=== PATIENT | female | born 1970 | race Caucasian/White ===

== ENCOUNTER 2018-04-20 06:25 | Emergency (ER) | payer OTHER ==
[~2018-04-20] VITALS: Ht 149.9 cm; Wt 68.0 kg
[~2018-04-20 06:25] MED LIST: DEPAKOTE ER250 MG PO; GEODON20 MG; HYDROXYCHLOROQUINE; KLONOPIN2 MG/TAB PO; LAMICTAL100 MG PO; LATUDA60 MG PO; LYRICA150 MG; MORPHINE IJ; RESTORIL30 MG PO; SEROQUEL200 MG PO; SYNTHROID100 MCG; ULTRAM ER200 MG; ULTRAM50 MG; ULTRAM50 MG PO; ZOCOR40 MG; ZOLOF
[2018-04-20] MEDS ORDERED: XANAX1 MG (06:38)
[2018-04-20] MEDS ORDERED: VITAMIN D5000 UNIT (06:39)
[2018-04-20] MEDS ORDERED: ZOCOR40 MG (06:39)
[2018-04-20] MEDS ORDERED: NEURONTIN800 MG (06:40)
== END 2018-04-20 10:41 | disposition home or self-care (01) ==
LOC: ER 06:25
DX: L02.31 Cutaneous abscess of buttock (principal); L02.416 Cutaneous abscess of left lower limb; L02.415 Cutaneous abscess of right lower limb; B95.7 Other staphylococcus as the cause of diseases classified elsewhere

== ENCOUNTER 2019-06-30 15:15 | Emergency (ER) | payer OTHER ==
[~2019-06-30] VITALS: Ht 149.9 cm; Wt 74.4 kg
[~2019-06-30 15:15] MED LIST changes: -CELEBREX200MG PO; -COZAAR25 MG; -HYDROCHLOROTH12.5 M1; -INDERAL LA80 MG; -PAMELOR75 M1; -PRADAXA150 MG; -PROTONIX40 M1; -ULTRACET PO
[2019-06-30] MEDS ORDERED: PRADAXA150 MG (15:29)
[2019-06-30] MEDS ORDERED: PROTONIX40 M1 (15:30)
[2019-06-30] MEDS ORDERED: HYDROCHLOROTH12.5 M1 (15:30)
[2019-06-30] MEDS ORDERED: PAMELOR75 M1 (15:30)
[2019-06-30] MEDS ORDERED: COZAAR25 MG (15:30)
[2019-06-30] MEDS ORDERED: INDERAL LA80 MG (15:30)
[2019-06-30] MEDS ORDERED: CELEBREX200MG PO (18:33)
[2019-06-30] MEDS ORDERED: ULTRACET PO (18:33)
== END 2019-06-30 18:57 ==
LOC: ER 15:15
DX: S93.692A Other sprain of left foot, initial encounter (principal); M79.7 Fibromyalgia; X50.1XXA Overexertion from prolonged static or awkward postures, initial encounter; Y93.89 Activity, other specified; Y92.89 Other specified places as the place of occurrence of the external cause; Y99.8 Other external cause status

== ENCOUNTER → 2019-06-30 | Outpatient (CLI) | payer OTHER ==
[~2019-06-30] MED LIST changes: +CELEBREX200MG PO; +COZAAR25 MG; +HYDROCHLOROTH12.5 M1; +INDERAL LA80 MG; +NEURONTIN800 MG; +PAMELOR75 M1; +PRADAXA150 MG; +PROTONIX40 M1; +ULTRACET PO; +VITAMIN D5000 UNIT; +XANAX1 MG
== END | disposition home or self-care (01) ==
LOC: RAD 12:58
DX: R10.84 Generalized abdominal pain (principal); E04.2 Nontoxic multinodular goiter

== ENCOUNTER 2020-09-02 07:02 | Day surgery (SDC) | payer OTHER ==
[~2020-09-02 07:02] MED LIST changes: +CELEBREX200MG PO; +COZAAR25 MG; +HYDROCHLOROTH12.5 M1; +INDERAL LA80 MG; +PAMELOR75 M1; +PRADAXA150 MG; +PROTONIX40 M1; +ULTRACET PO
== END 2020-09-02 13:15 | disposition home or self-care (01) ==
LOC: AMB-ENDOS 07:02
PROVIDERS: ATTEND Surgery
DX: K62.89 Other specified diseases of anus and rectum (principal); Z20.828 Contact with and (suspected) exposure to other viral communicable diseases

== ENCOUNTER 2021-11-18 12:31 | Emergency (ER) | payer OTHER ==
[~2021-11-18] VITALS: Ht 149.9 cm; Wt 72.1 kg
== END 2021-11-18 15:56 | disposition home or self-care (01) ==
LOC: ER 12:31
DX: U07.1 COVID-19 (principal); B34.9 Viral infection, unspecified; R05.9 Cough, unspecified; R53.81 Other malaise

== ENCOUNTER 2021-11-22 08:00 | Outpatient (CLI) | payer OTHER | END 2021-11-22 09:00 | disposition home or self-care (01) | LOC: ASH CLINIC 08:00 | PROVIDERS: ATTEND General Practice | DX: U07.1 COVID-19 (principal); Z23 Encounter for immunization ==

== ENCOUNTER 2022-01-04 05:05 | Emergency (ER) | payer OTHER ==
[~2022-01-04] VITALS: Ht 149.9 cm; Wt 72.1 kg
[2022-01-04] MEDS ORDERED: MEDROLPACK PO (10:53)
== END 2022-01-04 14:01 ==
LOC: ER 05:05
DX: M79.7 Fibromyalgia (principal); R00.2 Palpitations; G43.909 Migraine, unspecified, not intractable, without status migrainosus

== ENCOUNTER 2023-11-14 01:09 | Inpatient (IN) | payer OTHER ==
[~2023-11-14] VITALS: Ht 149.9 cm; Wt 72.6 kg
[~2023-11-14 01:09] MED LIST changes: +AMICAR500 MG; +BUSPIRONE HCL5 MG PO; +COZAAR25 MG PO; +CYMBALTA20 MG PO; +FLONASE16 GM NS; +LASIX20 MG; +MAXALT10 MG PO; +MEDROLPACK PO; +NEURONTIN300 MG PO; +PROTONIX; +SILENOR3 MG; +VENTOLIN HFA18 GM; +ZOCOR40 MG PO; +ZYRTEC10 M3 PO; +[UNRECOGNIZED DRUG - OTHER]
[2023-11-14 03:05] LABS: HEMATOCRIT 37.2 % (36.0-45.00); HEMOGLOBIN 12.3 g/dL (12.0-15.00); MEAN CELL VOLUME 86.9 fL (80.00-100.00); MEAN CORPUSCULAR HEMOGLOBIN 28.7 pg (27.00-32.0); PLATELET COUNT 307 K/uL (150-450); RED BLOOD COUNT 4.28 M/uL (4.00-6.00); RED CELL DISTRIBUTION WIDTH 13.8 % (11.5-14.5)
[2023-11-14 03:27] LABS: PH,URINE 5.5 (5.0-8.0); URINE APPEARANCE Clear; URINE BILIRRUBIN Negative (NEGATIVE); URINE BLOOD Negative; URINE COLOR Dark Yellow; URINE GLUCOSE Negative (NEGATIVE); URINE LEUKOCYTE Trace; URINE NITRATE Positive; URINE PROTEIN Negative (NEGATIVE)
[2023-11-14 03:30] LABS: URINE EPITHELIAL CELLS 14.8 uL (0.0-38.8); URINE RBC 4.3 uL (0.0-20.8)
[2023-11-14 03:39] LABS: INR < 0.93; PARTIAL THROMBOPLASTIN TIME 23.6 SECONDS (22.0-34.0); PROTHROMBIN TIME 9.8 SECONDS (9.0-11.5)
[2023-11-14 03:44] LABS: ALBUMIN 3.1 gm/dL (3.4-5.0); BILIRUBIN TOTAL 0.42 mg/dL (0.3-1.2); CALCIUM 9.3 mg/dL (8.5-10.1); CREATININE SERUM 0.86 mg/dL (0.55-1.02); GFR 69.02; GLOBULINA 3.5 G/DL (2.4-3.5); POTASSIUM 3.94 mEq/L (3.5-5.1); TOTAL PROTEIN 6.6 gm/dL (6.4-8.2)
[2023-11-16 05:26] LABS: HEMATOCRIT 33.8 % (36.0-45.00); HEMOGLOBIN 11.4 g/dL (12.0-15.00); MEAN CELL VOLUME 85.5 fL (80.00-100.00); MEAN CORPUSCULAR HEMOGLOBIN 28.8 pg (27.00-32.0); MEAN CORPUSCULAR HGB CONC 33.7 g/dl (32.0-36.0); PLATELET COUNT 265 K/uL (150-450); RED BLOOD COUNT 3.95 M/uL (4.00-6.00); RED CELL DISTRIBUTION WIDTH 13.5 % (11.5-14.5)
[2023-11-16 05:35] LABS: BILIRUBIN TOTAL 0.38 mg/dL (0.3-1.2); CALCIUM 8.6 mg/dL (8.5-10.1); CREATININE SERUM 0.69 mg/dL (0.55-1.02); GLOBULINA 3.1 G/DL (2.4-3.5); MAGNESIUM 1.8 mg/dL (1.8-2.4); PHOSPHOROUS 4.2 mg/dL (2.5-4.9); POTASSIUM 3.9 mEq/L (3.5-5.1); TOTAL PROTEIN 6.1 gm/dL (6.4-8.2)
[2023-11-16] MEDS ORDERED: TAMS0.4C PO (16:48)
[2023-11-16] MEDS ORDERED: INTEGRA PLUS C1 EACH PO (16:49)
[2023-11-16] MEDS ORDERED: PANTOPRAZOLE SO20 MG PO (16:50)
[2023-11-16] MEDS ORDERED: KETO10TA2 PO (16:50)
== END 2023-11-16 18:50 | disposition home or self-care (01) | DRG 690 ==
LOC: ER 01:10 → MEDI 11:50
PROVIDERS: General Practice; ADMIT Internal Medicine; ATTEND Internal Medicine
PROC: BW21ZZZ Computerized Tomography (CT Scan) of Abdomen and Pelvis (ICD-10-PCS; principal; 2023-11-14)
DX: N39.0 Urinary tract infection, site not specified (principal); D68.62 Lupus anticoagulant syndrome; N20.1 Calculus of ureter; R33.9 Retention of urine, unspecified; I10 Essential (primary) hypertension; E03.9 Hypothyroidism, unspecified; N20.0 Calculus of kidney

== ENCOUNTER 2023-11-20 09:39 | Emergency (ER) | payer OTHER ==
[~2023-11-20] VITALS: Ht 149.9 cm; Wt 74.4 kg
[~2023-11-20 09:39] MED LIST changes: +INTEGRA PLUS C1 EACH PO; +KETO10TA2 PO; +PANTOPRAZOLE SO20 MG PO; +TAMS0.4C PO
[2023-11-20 11:21] LABS: HEMATOCRIT 38.3 % (36.0-45.00); HEMOGLOBIN 12.9 g/dL (12.0-15.00); MEAN CELL VOLUME 85.7 fL (80.00-100.00); MEAN CORPUSCULAR HEMOGLOBIN 28.9 pg (27.00-32.0); MEAN CORPUSCULAR HGB CONC 33.8 g/dl (32.0-36.0); PLATELET COUNT 336 K/uL (150-450); RED BLOOD COUNT 4.46 M/uL (4.00-6.00)
[2023-11-20 11:30] LABS: URINE APPEARANCE Clear; URINE BILIRRUBIN Negative (NEGATIVE); URINE BLOOD Negative; URINE COLOR Yellow; URINE GLUCOSE Negative (NEGATIVE); URINE LEUKOCYTE Negative; URINE NITRATE Negative; URINE PROTEIN Negative (NEGATIVE); URINE UROBILINOGEN 0.2 E.U./dl
[2023-11-20 11:35] LABS: URINE BACTERIA 21.4 uL (0.0-1933); URINE EPITHELIAL CELLS 14.9 uL (0.0-38.8)
[2023-11-20 11:42] LABS: INR 1.01; PARTIAL THROMBOPLASTIN TIME 24.6 SECONDS (22.0-34.0); PROTHROMBIN TIME 10.6 SECONDS (9.0-11.5)
[2023-11-20 11:49] LABS: ALBUMIN 3.8 gm/dL (3.4-5.0); BILIRUBIN TOTAL 0.76 mg/dL (0.3-1.2); CALCIUM 9.8 mg/dL (8.5-10.1); CREATININE SERUM 0.7 mg/dL (0.55-1.02); GFR 87.53; GLOBULINA 4.2 G/DL (2.4-3.5); POTASSIUM 3.7 mEq/L (3.5-5.1)
== END 2023-11-20 17:18 | disposition home or self-care (01) ==
LOC: ER 09:40
PROVIDERS: General Practice
DX: R11.2 Nausea with vomiting, unspecified (principal); M32.8 Other forms of systemic lupus erythematosus; M79.7 Fibromyalgia; Z88.6 Allergy status to analgesic agent; E56.8 Deficiency of other vitamins; I10 Essential (primary) hypertension; E03.9 Hypothyroidism, unspecified; E78.00 Pure hypercholesterolemia, unspecified; N20.1 Calculus of ureter; N20.0 Calculus of kidney
CPT/HCPCS: 36415; 74240; 76770; 96365; 99284; J2405

== ENCOUNTER 2024-06-16 04:32 | Emergency (ER) | payer OTHER ==
[~2024-06-16] VITALS: Ht 162.6 cm; Wt 70.3 kg
[2024-06-16] MEDS ORDERED: PROMETHAZINE HCL 50 MG/ML AMPUL IM STA (04:57)
[2024-06-16] MEDS ORDERED: MEPERIDINE HCL/PF 50 MG/ML VIAL IM STA (04:57)
[2024-06-16] MEDS ORDERED: SODIUM CHLORIDE 0.45 % 1,000 ML IV ONE (05:00)
[2024-06-16] MEDS ORDERED: PROMETHAZINE HCL 50 MG/ML AMPUL IM ONE (05:01)
[2024-06-16 06:21] LABS: HEMATOCRIT 37.5 % (36.0-45.00); HEMOGLOBIN 12.7 g/dL (12.0-15.00); MEAN CELL VOLUME 87.1 fL (80.00-100.00); MEAN CORPUSCULAR HEMOGLOBIN 29.4 pg (27.00-32.0); MEAN CORPUSCULAR HGB CONC 33.8 g/dl (32.0-36.0); PLATELET COUNT 288 K/uL (150-450); RED BLOOD COUNT 4.31 M/uL (4.00-6.00); RED CELL DISTRIBUTION WIDTH 14.3 % (11.5-14.5)
[2024-06-16 06:26] LABS: URINE APPEARANCE Cloudy; URINE BILIRRUBIN Negative (NEGATIVE); URINE BLOOD Large; URINE COLOR Yellow; URINE GLUCOSE Negative (NEGATIVE); URINE KETONE Trace (NEGATIVE); URINE LEUKOCYTE Moderate; URINE NITRATE Negative; URINE PROTEIN 30 (NEGATIVE); URINE UROBILINOGEN 0.2 E.U./dl
[2024-06-16 06:28] LABS: URINE BACTERIA 2664.7 uL (0.0-1933); URINE EPITHELIAL CELLS 67.2 uL (0.0-38.8); URINE RBC 37.2 uL (0.0-20.8); URINE WBC 2180.3 uL (0.0-23.2)
[2024-06-16 06:37] LABS: CALCIUM 9.6 mg/dL (8.5-10.1); CREATININE SERUM 0.77 mg/dL (0.55-1.02); GFR 78.41; POTASSIUM 4.26 mEq/L (3.5-5.1)
[2024-06-16 07:02] LABS: URINE CAST 0.76 uL (0.0-1.40)
[2024-06-16] MEDS ORDERED: MEPERIDINE HCL/PF 25 MG/ML VIAL IV STA (07:30)
[2024-06-16] MEDS ORDERED: MEPERIDINE HCL/PF 25 MG/ML VIAL IM ONE (10:45)
== END 2024-06-16 10:40 | disposition home or self-care (01) ==
LOC: ER 04:33
PROVIDERS: General Practice
DX: R10.9 Unspecified abdominal pain (principal); I10 Essential (primary) hypertension; Z88.6 Allergy status to analgesic agent
CPT/HCPCS: 36415; 74176; 96365; 96372; 99284; J2550; J3490 ×3

== ENCOUNTER 2024-07-20 11:32 | Emergency (ER) | payer OTHER ==
[~2024-07-20] VITALS: Ht 149.9 cm; Wt 74.4 kg
[2024-07-20] MEDS ORDERED: 0.9 % SODIUM CHLORIDE 1,000 ML IV ONE (12:45)
[2024-07-20] MEDS ORDERED: TAMSULOSIN HCL 0.4 MG CAP PO ONE (12:45)
[2024-07-20] MEDS ORDERED: MEPERIDINE HCL/PF 25 MG/ML VIAL IV ONE (12:45)
[2024-07-20] MEDS ORDERED: ONDANSETRON HCL 2 MG/ML VIAL IV ONE (12:45)
[2024-07-20] MEDS ORDERED: FAMOtidine 10 MG/ML (4ML VIAL) IV ONE (12:45)
[2024-07-20 13:09] LABS: HEMATOCRIT 36.3 % (36.0-45.00); HEMOGLOBIN 12.2 g/dL (12.0-15.00); MEAN CELL VOLUME 86.9 fL (80.00-100.00); MEAN CORPUSCULAR HEMOGLOBIN 29.1 pg (27.00-32.0); MEAN CORPUSCULAR HGB CONC 33.5 g/dl (32.0-36.0); PLATELET COUNT 304 K/uL (150-450); RED BLOOD COUNT 4.18 M/uL (4.00-6.00)
[2024-07-20 13:25] LABS: URINE APPEARANCE Cloudy; URINE BILIRRUBIN Small (NEGATIVE); URINE BLOOD Small; URINE COLOR Red; URINE GLUCOSE Negative (NEGATIVE); URINE KETONE Error (NEGATIVE); URINE LEUKOCYTE Moderate; URINE NITRATE Positive; URINE PROTEIN 30 (NEGATIVE)
[2024-07-20 13:26] LABS: URINE EPITHELIAL CELLS 46.2 uL (0.0-38.8); URINE RBC 85.6 uL (0.0-20.8); URINE WBC 12.6 uL (0.0-23.2)
[2024-07-20 13:52] LABS: PH,URINE 7.5 (5.0-8.0); URINE BACTERIA > 9821.5 uL (0.0-1933); URINE CAST 0.61 uL (0.0-1.40)
[2024-07-20 14:02] LABS: ALBUMIN 3.5 gm/dL (3.4-5.0); BILIRUBIN TOTAL 0.7 mg/dL (0.3-1.2); CALCIUM 9.4 mg/dL (8.5-10.1); CREATININE SERUM 0.9 mg/dL (0.55-1.02); GFR 65.5; GLOBULINA 4.2 G/DL (2.4-3.5); POTASSIUM 4.31 mEq/L (3.5-5.1); TOTAL PROTEIN 7.7 gm/dL (6.4-8.2)
[2024-07-20] MEDS ORDERED: CEFTRIAXONE SODIUM 1,000 MG VIAL IV ONE (15:45)
== END 2024-07-20 17:24 | disposition home or self-care (01) ==
LOC: ER 11:33
PROVIDERS: General Practice
DX: N39.0 Urinary tract infection, site not specified (principal); R10.9 Unspecified abdominal pain; I10 Essential (primary) hypertension; E03.8 Other specified hypothyroidism; Z88.6 Allergy status to analgesic agent
CPT/HCPCS: 36415; 74177; Q9965

== ENCOUNTER 2024-11-11 16:07 | Outpatient (CLI) | payer OTHER ==
[2024-11-11 17:12] LABS: COL EPI 73 SECONDS (82-175)
== END 2024-11-11 16:20 | disposition home or self-care (01) ==
LOC: LAB 16:07
PROVIDERS: ATTEND Internal Medicine Hematology & Oncology
DX: D68.8 Other specified coagulation defects (principal)

== ENCOUNTER 2024-11-20 14:46 | Emergency (ER) | payer OTHER ==
[~2024-11-20] VITALS: Ht 149.9 cm; Wt 77.1 kg
[2024-11-20] MEDS ORDERED: SYNTHROID88 MCG PO (15:01)
[2024-11-20] MEDS ORDERED: NEURONTIN800 MG PO (15:01)
[2024-11-20] MEDS ORDERED: LOSARTAN-HCTZ1 EACH PO (15:02)
[2024-11-20 15:03] VITALS: BP 132/90; O2SAT 97
[2024-11-20 18:09] LABS: HEMATOCRIT 36.6 % (36.0-45.00); HEMOGLOBIN 12.1 g/dL (12.0-15.00); MEAN CELL VOLUME 87.4 fL (80.00-100.00); MEAN CORPUSCULAR HEMOGLOBIN 28.9 pg (27.00-32.0); MEAN CORPUSCULAR HGB CONC 33.1 g/dl (32.0-36.0); PLATELET COUNT 291 K/uL (150-450); RED BLOOD COUNT 4.19 M/uL (4.00-6.00); RED CELL DISTRIBUTION WIDTH 14.5 % (11.5-14.5)
[2024-11-20 18:13] LABS: URINE APPEARANCE Clear; URINE BILIRRUBIN Negative (NEGATIVE); URINE BLOOD NHT; URINE COLOR Dark Yellow; URINE GLUCOSE Negative (NEGATIVE); URINE KETONE Negative (NEGATIVE); URINE LEUKOCYTE Moderate; URINE NITRATE Positive; URINE PROTEIN Negative (NEGATIVE)
[2024-11-20 18:15] LABS: URINE BACTERIA 281.4 uL (0.0-1933); URINE EPITHELIAL CELLS 29.4 uL (0.0-38.8)
[2024-11-20] MEDS ORDERED: ACETAMINOPHEN 500 MG GEL..CAP PO ONE ×2 (18:15→18:25)
[2024-11-20] MEDS ORDERED: METOCLOPRAMIDE HCL 5 MG/ML VIAL IM ONE (18:15)
[2024-11-20] MEDS ORDERED: METOCLOPRAMIDE HCL 5 MG/ML VIAL ONE (18:25)
[2024-11-20 18:45] LABS: ALBUMIN 3.4 gm/dL (3.4-5.0); BILIRUBIN TOTAL 0.5 mg/dL (0.3-1.2); CREATININE SERUM 0.8 mg/dL (0.55-1.02); GFR 74.75; GLOBULINA 3.9 G/DL (2.4-3.5); POTASSIUM 4.85 mEq/L (3.5-5.1); TOTAL PROTEIN 7.3 gm/dL (6.4-8.2)
[2024-11-20] MEDS ORDERED: MACROBID 100 M100 MG PO (21:44)
[2024-11-20] MEDS ORDERED: CEFTRIAXONE SODIUM 1,000 MG VIAL IM ONE (21:45)
[2024-11-20] MEDS ORDERED: CEFTRIAXONE SODIUM 1,000 MG VIAL ONE (21:59)
== END 2024-11-20 22:15 | disposition home or self-care (01) ==
LOC: ER 14:48
PROVIDERS: Preventive Medicine Public Health & General Preventive Medicine
DX: N39.0 Urinary tract infection, site not specified (principal); Z88.6 Allergy status to analgesic agent; N20.0 Calculus of kidney
CPT/HCPCS: 36415; 96372; 99282; J0696; J2765

== ENCOUNTER 2025-09-02 07:13 | Outpatient (CLI) | payer OTHER ==
[~2025-09-02 07:13] MED LIST changes: +LOSARTAN-HCTZ1 EACH PO; +MACROBID 100 M100 MG PO; +NEURONTIN800 MG PO; +SYNTHROID88 MCG PO
== END 2025-09-02 07:14 | disposition home or self-care (01) ==
LOC: NUCLEAR 07:13
PROVIDERS: ATTEND Internal Medicine Hematology & Oncology
DX: E04.1 Nontoxic single thyroid nodule (principal); E06.3 Autoimmune thyroiditis
CPT/HCPCS: 78014; A9512

== ENCOUNTER → 2025-09-03 07:09 | Outpatient (CLI) | payer OTHER | END | disposition home or self-care (01) | LOC: NUCLEAR 07:00 | DX: E04.1 Nontoxic single thyroid nodule (principal); E06.3 Autoimmune thyroiditis | CPT/HCPCS: 78012; A9512 ==